=== PATIENT | male | born 1945 | race Caucasian/White ===

== ENCOUNTER → 2023-01-18 14:11 | Outpatient (BNVA) | payer OTHER, SELFPAY | PROVIDERS: PCP Internal Medicine Critical Care Medicine; Visit Provider Internal Medicine Endocrinology, Diabetes & Metabolism | DX: E11.9 Type 2 diabetes mellitus without complications (principal) | CPT/HCPCS: 82947; 83036 ==

== ENCOUNTER → 2023-02-05 13:20 | Outpatient (BNVA) | payer OTHER, SELFPAY | PROVIDERS: PCP Internal Medicine Critical Care Medicine; Visit Provider Dietitian, Registered | DX: E11.9 Type 2 diabetes mellitus without complications (principal); Z71.3 Dietary counseling and surveillance | CPT/HCPCS: 97802 ==

== ENCOUNTER 2023-07-05 09:01 | Outpatient (AMB) | payer MEDICARE, OTHER, SELFPAY ==
[2023-07-05 09:03] VITALS: BP 110/56; PULSE 65; BMI 38.0
--- NOTE | 2023-07-05 09:03 | MHC.OFFVIS ---
Intake Vital Signs 07/05/23 09:03 Height 5 ft 10 in Weight 264 lb 8.875 oz BMI 38.0 BP 110/56 L Blood Pressure Location Lt brachial Position Sitting Pulse 65 Pulse Source Pulse Oximeter Intake Visit Reasons: DM -LVM Intake Note: Patient presents today to follow up on Type 2 Diabetes Mellitus. Last Diabetic Eye exam:2 years ago Last Podiatry Visit: None Random Glucose: c173 mg/dl HgA1C:7.2% Cardiovascular Operating Room Nurse Required: No Accompanied by: Self / Same As Patient Allergies No Known Allergies Allergy (Verified 07/05/23 09:10) HPI HPI Comments History of Present Illness Details This is a 77-year-old white male previously seen by myself [facility] for management of type 2 diabetes. Current regimen: Trulicity 3 mg Q weekly Jardiance 10 mg q.d. Metformin 1000 mg b.i.d. Basaglar 24 units Guillaume download shows she is using the sensor 26% of the time. Average glucose is 141 with glucose variability of 23.3%. 85% range with 15% hyperglycemia and no hypoglycemia Hypoglycemia: No Ophthalmology appointments:Needs to make optho [facility] Medical History (Updated 01/18/23 @ 14:29 by Chalino Fields MD) Type 2 diabetes mellitus Surgical History History of Mohs surgery for squamous cell carcinoma of skin Hx of hernia repair Hx of knee surgery Family History Father Lung cancer Mother Dementia Brother Acute arthritis Sister Acute arthritis Social History Alcohol intake: current Alcohol intake frequency: does not drink Patient Tobacco Use Status: Never used Tobacco Physical Exam Vital Signs: Last Vital Signs Pulse 65 07/05/23 09:03 BP 110/56 L 07/05/23 09:03 BMI result Body Mass Index 38.0 Absence of Cushingoid features. Absence of acromegalic features. Neck exam reveals nl size thyroid about 15 gms. No thyroid nodules palpable. No carotid bruits present. Lungs CTA. Heart S1 S2, Reg R/R. No M/R/ G. Skin exam reveals absence of vitiligo or acanthosis nigricans. Abdominal exam reveals Soft NT/ND with NA BS. No organomegaly present. Neck Other: . Extrem Other: Visual exam of foot performed. No ulcerations or open lesions. No onchomycosis, no callouses.Pulses 2 + distally Sensation intact to monofilament exam. Vibratory sensation sensed is decreased with 128 Hz tuning fork Results AMB Hemoglobin A1c AMB Hemoglobin A1c 7.2 % Last Edit by Catrachita Tuttle on 07/05/23 09:53 Results Reviewed Results Reviewed: 07/05/23 09:13 Glucose, Whole Blood Routine Laboratory Last Values Glucose (Clinic) 173 mg/dL (60-115) H 07/05/23 09:13 Hgb A1c (Clinic) 7.2 % (4.0-6.0) H 07/05/23 09:48 Assessment & Plan Assessment & Plan (1) Type 2 diabetes mellitus: Code(s): E11.9 - Type 2 diabetes mellitus without complications Plan: This 77-year-old white male with a history of type 2 diabetes being treated with metformin, Trulicity, Jardiance and basal insulin with good glycemic control adequate for age and no known microvascular or macrovascular complication Plan is that the patient continue to use the freestyle sensor but to scan more frequently with the Guillaume. Cannot make any adjustments to regimen because of limited data today. Will refer to elementary educator Will check labs that were done by primary care provider Orders: Orders AMB Hemoglobin A1c Today E11.9 - Type 2 diabetes mellitus without complications Coding Level of Care Code Est Pt Level 4 (79936) Diagnoses Type 2 diabetes mellitus E11.9
== END 2023-07-05 09:42 | disposition home or self-care (01) ==
PROVIDERS: PCP Internal Medicine Critical Care Medicine; Visit Provider Internal Medicine Endocrinology, Diabetes & Metabolism
DX: E11.9 Type 2 diabetes mellitus without complications (principal)
CPT/HCPCS: 99214

== ENCOUNTER → 2023-07-05 09:01 | Outpatient (BNVA) | payer OTHER, MEDICARE, SELFPAY | PROVIDERS: PCP Internal Medicine Critical Care Medicine; Visit Provider Internal Medicine Endocrinology, Diabetes & Metabolism | DX: E11.9 Type 2 diabetes mellitus without complications (principal); Z79.4 Long term (current) use of insulin | CPT/HCPCS: 82947; 83036 ==

== ENCOUNTER 2023-12-31 08:08 | Outpatient (REF) | payer MEDICARE, OTHER, SELFPAY ==
[2023-12-31 09:16] LABS: Anion Gap 12 (12-20); Blood Urea Nitrogen 21 mg/dL (9-16); Calcium 9.2 mg/dL (8.4-10.2); Carbon Dioxide 27 mmol/L (22-29); Chloride 109 mmol/L (96-108); Cholesterol 160 mg/dL (<200); Estimated Glomerular Filt Rate > 60; Glucose Random 139 mg/dL (60-115); HDL Cholesterol 47 mg/dL (>40); LDL Cholesterol Calculated 86 mg/dL (<100); Sodium 144 mmol/L (135-145); Triglycerides 135 mg/dL (<150)
[2023-12-31 09:18] LABS: Creatinine Urine 68.33 mg/dL; Microalbum/Creatinine Ratio Ur 21.9 ug/mg cr (<30)
== END 2023-12-31 08:09 | disposition home or self-care (01) ==
LOC: HO.LAB 08:08
PROVIDERS: PCP Internal Medicine Endocrinology, Diabetes & Metabolism; Visit Provider Internal Medicine Endocrinology, Diabetes & Metabolism
DX: E11.9 Type 2 diabetes mellitus without complications (principal)
CPT/HCPCS: 36415; 80048; 80061; 82043; 82570

== ENCOUNTER 2024-01-03 08:34 | Outpatient (AMB) | payer MEDICARE, OTHER, SELFPAY ==
--- NOTE | 2024-01-03 08:45 | MHC.OFFVIS ---
Intake Vital Signs 01/03/24 08:51 Height 5 ft 10 in Weight 261 lb 14.546 oz BMI 37.6 BP 112/68 Blood Pressure Location Lt brachial Position Sitting Pulse 72 Pulse Source Pulse Oximeter Intake Visit Reasons: DM2-confirmed Intake Note: Patient presents today to follow up on D2MT. Last Diabetic Eye exam: 12/31/23 Last Podiatry Visit: Doesn't have one Random Glucose:199 mg/dl HgA1c: 7.7% Quality Analyst/Technical Writer Required: No Accompanied by: Self / Same As Patient Allergies No Known Allergies Allergy (Verified 01/03/24 08:56) Medication List - Last Reconciled 01/03/24 by Chalino Fields MD atorvastatin 20 mg PO DAILY Basaglar KwikPen U-100 Insulin (insulin glargine) 24 units (0.24 mL) subcut QPM NS dulaglutide (Trulicity) 3 mg (0.5 mL) subcut QWEEK empagliflozin (Jardiance) 10 mg PO QAM flash glucose sensor (FreeStyle Guillaume 14 Day Sensor kit) As directed losartan 100 mg PO DAILY metformin ER 1,000 mg PO BID pen needle, diabetic (BD Ultra-Fine Short Pen Needle) As directed once a day terazosin 2 mg PO BEDTIME HPI HPI Comments History of Present Illness Details This is a 77-year-old white male previously seen by myself [facility] for management of type 2 diabetes. Current regimen: Trulicity 3 mg Q weekly Jardiance 10 mg q.d. Metformin 1000 mg b.i.d. Basaglar 24 units Guillaume download shows she is using the sensor 46% of the time. Average glucose is 184 with GMI of 7.7 glucose variability of 24.1%. 61% range with 39% hyperglycemia and no hypoglycemia Hypoglycemia: No Ophthalmology appointments: saw optho last wk [facility] Medical History (Updated 01/18/23 @ 14:29 by Chalino Fields MD) Type 2 diabetes mellitus Surgical History History of Mohs surgery for squamous cell carcinoma of skin Hx of hernia repair Hx of knee surgery Family History Father Lung cancer Mother Dementia Brother Acute arthritis Sister Acute arthritis Social History Alcohol intake: current Alcohol intake frequency: does not drink Patient Tobacco Use Status: Never used Tobacco Physical Exam Vital Signs: Last Vital Signs Pulse 72 01/03/24 08:51 BP 112/68 01/03/24 08:51 BMI result Body Mass Index 37.6 Absence of Cushingoid features. Absence of acromegalic features. Neck exam reveals nl size thyroid about 15 gms. No thyroid nodules palpable. No carotid bruits present. Lungs CTA. Heart S1 S2, Reg R/R. No M/R/ G. Skin exam reveals absence of vitiligo or acanthosis nigricans. Abdominal exam reveals Soft NT/ND with NA BS. No organomegaly present. Neck Other: . Extrem Other: Visual exam of foot performed. No ulcerations or open lesions. No onchomycosis, no callouses.Pulses 2 + distally Sensation intact to monofilament exam. Vibratory sensation sensed is decreased with 128 Hz tuning fork Results AMB Hemoglobin A1c AMB Hemoglobin A1c 7.7 % Last Edit by GAURANG Caruso on 01/03/24 09:09 Results Reviewed Results Reviewed: Laboratory Last Values Glucose (Clinic) 199 mg/dL (60-115) H 01/03/24 08:59 Hgb A1c (Clinic) 7.7 % (4.0-6.0) H 01/03/24 09:03 Assessment & Plan Assessment & Plan (1) Type 2 diabetes mellitus: Code(s): E11.9 - Type 2 diabetes mellitus without complications Plan: This 78-year-old white male with a history of type 2 diabetes being treated with metformin, Trulicity, Jardiance and basal insulin with good glycemic control adequate for age and no known microvascular or macrovascular complication Plan is to continue current regimen and that the patient continue to use the freestyle sensor but to scan more frequently with the Guillaume. . Orders: Orders AMB Hemoglobin A1c Today E11.9 - Type 2 diabetes mellitus without complications, Z13.9 - Encounter for screening, unspecified Coding Level of Care Code Est Pt Level 4 (92516) Diagnoses Type 2 diabetes mellitus E11.9
[2024-01-03 08:51] VITALS: BP 112/68; PULSE 72; BMI 37.6
[2024-01-03 09:04] LABS: Glucose, Whole Blood 199 mg/dL (60-115)
== END 2024-01-03 09:31 | disposition home or self-care (01) ==
PROVIDERS: PCP Internal Medicine Critical Care Medicine; Visit Provider Internal Medicine Endocrinology, Diabetes & Metabolism
DX: Z13.9 Encounter for screening, unspecified (principal); E11.9 Type 2 diabetes mellitus without complications
CPT/HCPCS: 99214

== ENCOUNTER → 2024-01-03 08:34 | Outpatient (BNVA) | payer MEDICARE, OTHER, SELFPAY | PROVIDERS: PCP Internal Medicine Critical Care Medicine; Visit Provider Internal Medicine Endocrinology, Diabetes & Metabolism | DX: E11.9 Type 2 diabetes mellitus without complications (principal); Z79.4 Long term (current) use of insulin | CPT/HCPCS: 82947; 83036 ==